=== PATIENT | female | born 1950 | race Caucasian/White ===

== ENCOUNTER 2016-10-07 10:29 | Inpatient (IN) ==
[2016-10-07] MEDS: *HR* OxyCODONE Immed Rel 5 MG TABLET PO PRN ×2 (15:34→21:30)
--- NOTE | 2016-10-07 16:57 | Internal Med History&Physical ---
Date of Encounter: 10/07/16 Time of Encounter: 16:30 Assessment and Plan (1) Arthritis of right hip Current visit: No Status: Acute Status post right THR 10/04/2016. She will have physical therapy and occupational therapy evaluations with ongoing intervention. (2) Acute renal failure Current visit: Yes Status: Acute Creatinine was 1.13 with estimated GFR 48 on 10/06/2016. We will continue to withhold meloxicam and monitor renal indices. Qualifiers: Acute renal failure type: unspecified Qualified Code(s): N17.9 - Acute kidney failure, unspecified (3) HTN (hypertension) Current visit: No Status: Chronic Will monitor blood pressure. Qualifiers: Hypertension type: essential hypertension Qualified Code(s): I10 - Essential (primary) hypertension (4) Acute blood loss anemia Current visit: No Status: Acute Will hold aspirin and meloxicam and give Lovenox for DVT prophylaxis. Internal Medicine - H&P: HPI Chief complaint: Right THR Admitted From: Hospital to Hospital Transfer Plans for Post Hospital Care: Home History of present illness: Ms. Calle is a 65 year old female who underwent elective right THR at [facility] by October 04. Her postop course was unremarkable and she was admitted to [facility] swing bed today for rehabilitation therapy prior to returning home for independent living. She denies previous orthopedic surgeries. She denies gout or other bone joint or muscle disease. Past Med Surg Social Fam HX - Past Medical History Medical history: arthritis, hypertension, other Psychiatric history: no psych history - Past Surgical History Surgical History: hysterectomy - Social History Smoking Status: Never smoker Smokeless Tobacco Status: No Alcohol use: none Drug use: none - Family History Father Living Status: Hx Family Cancer: Yes (lung) Mother Living Status: Hx Family Cardiac Disorders: Yes Internal Medicine - H&P: Meds Meloxicam 15 mg PO DAILY 03/03/16 [History] Aspirin Enteric Coated [Aspirin EC] 325 mg PO DAILY #21 tablet. 10/03/16 [Rx] OxyCODONE Immed Rel [Roxicodone 5 MG] 5 - 10 mg PO Q6HR PRN #40 tablet 10/03/16 [Rx] Bisacodyl [Dulcolax] 5 mg PO DAILY PRN 10/04/16 [History] Allergies No Known Allergies Allergy (Verified 06/19/15 06:58) All Systems PM: A 10-system review of systems was performed and is negative for pertinent findings except as documented above in the HPI. Review of systems: Gen.: She states her weight has decreased approximately 20 pounds in the past year, intentionally Cardiovascular: She denies hypertension heart failure angina DVT or pulmonary embolus Respiratory: She is a lifelong nonsmoker and has no known chronic lung disease GI: She denies disorders of her liver gallbladder or exocrine pancreas : She denies hematuria dysuria or kidney stones Neurologic: She denies large distribution strokes or seizures. Endocrine: She denies diabetes thyroid disease or hyperlipidemia Hematology/oncology: She had anemia documented on recent CBCs. She denies blood disorders or internal malignancies Psychiatric: She denies anxiety depression or other mental health issues Musculoskeletal: As per history of present illness - Other Additional findings: Gen.: She is a well-developed well-nourished female sitting in a chair who appears in no acute distress at present time HEENT: Head is atraumatic and normocephalic. Eyes: EOMI. There is no scleral icterus. Mouth: Mucosa is moist. Neck: Supple and nontender. There is no thyromegaly or adenopathy noted. Heart: Regular without murmurs gallops or ectopics. Lungs: No wheezes or crackles are heard. Abdomen: Soft and nontender. Exam is limited because she is in the seated position. Extremities: There is no cyanosis or clubbing noted. She has trace edema of the anterior tibia bilaterally. She has minimal DJD changes of her hands. Neurologic: Mental status: She is talkative and a good historian. Cranial nerves: Smile is symmetric. Forehead wrinkles bilaterally. Tongue protrudes midline. EOMI. Motor: There is no pronator drift. Cerebellar: Finger to nose is intact bilaterally. Skin: Warm and dry - VTE Documentation of Mechanical Device: Venous foot pump, device
[2016-10-07] MEDS: MOM Conc 10 ML UD.LIQ PO SCH (21:30)
[2016-10-08] MEDS: *HR* OxyCODONE Immed Rel 5 MG TABLET PO PRN ×4 (03:35→22:29)
[2016-10-08] MEDS: *HR* Enoxaparin 40 MG/0.4 ML SYRINGE SQ SCH (06:03)
[2016-10-08] MEDS: Ondansetron ODT 4 MG TAB.RAPDIS SL PRN (06:03)
[2016-10-08] MEDS ORDERED: Aspirin Enteric Coated 325 MG Tablet PO SCH (09:00)
--- NOTE | 2016-10-08 15:37 | Internal Med Progress Note ---
Date of Encounter: 10/08/16 Time of Encounter: 15:30 - Assessment and plan (1) Arthritis of right hip Current Visit: No Status: Acute Assessment and plan: October 08. Status post right THR 10/04/2016. Continue PT and OT intervention. Continue Lovenox for DVT prophylaxis (2) Acute renal failure Current Visit: Yes Status: Acute Assessment and plan: October 08. Continue to withhold aspirin and meloxicam. We will recheck renal indices in 2-3 days. Qualifiers: Acute renal failure type: unspecified Qualified Code(s): N17.9 - Acute kidney failure, unspecified (3) HTN (hypertension) Current Visit: No Status: Chronic Assessment and plan: October 08. Continue to monitor blood pressure. Qualifiers: Hypertension type: essential hypertension Qualified Code(s): I10 - Essential (primary) hypertension (4) Acute blood loss anemia Current Visit: No Status: Acute Assessment and plan: October 08. We will monitor CBC - Subjective Interval history: October 08. She has no new complaints. - Constitutional Vitals: Temp Pulse Resp BP Pulse Ox 99 F 84 18 100/67 97 10/08/16 07:42 10/08/16 12:54 10/08/16 12:54 10/08/16 12:54 10/08/16 12:54 Exam: She is resting comfortably in bed. Her affect is bright and cheerful. She has an abduction pillow in place. I reviewed her medications. - VTE Documentation of Mechanical Device: Venous foot pump, device Consult Discharge Plan - Plan Referrals: NO,PCP [Primary Care Provider] - 1 week
[2016-10-09] MEDS: *HR* OxyCODONE Immed Rel 5 MG TABLET PO PRN ×5 (01:01→17:26)
[2016-10-09] MEDS ORDERED: *HR* OxyCODONE Immed Rel 5 MG TABLET PO SCH ×2 (04:00)
[2016-10-09] MEDS: *HR* Enoxaparin 40 MG/0.4 ML SYRINGE SQ SCH (08:15)
[2016-10-09] MEDS: MOM Conc 10 ML UD.LIQ PO SCH (17:20)
[2016-10-09] MEDS ORDERED: *HR* OxyCODONE Immed Rel 5 MG TABLET PO ONE (20:18)
[2016-10-10] MEDS: *HR* OxyCODONE Immed Rel 5 MG TABLET PO PRN ×5 (00:22→19:46)
[2016-10-10] MEDS: *HR* Enoxaparin 40 MG/0.4 ML SYRINGE SQ SCH (05:54)
--- NOTE | 2016-10-10 12:27 | Internal Med Progress Note ---
Date of Encounter: 10/10/16 Time of Encounter: 12:20 - Assessment and plan (1) Arthritis of right hip Current Visit: No Status: Acute Assessment and plan: October 08. Status post right THR 10/04/2016. Continue PT and OT intervention. Continue Lovenox for DVT prophylaxis (2) Acute renal failure Current Visit: Yes Status: Acute Assessment and plan: October 08. Continue to withhold aspirin and meloxicam. We will recheck renal indices in 2-3 days. October 2. We will check labs in a.m. Qualifiers: Acute renal failure type: unspecified Qualified Code(s): N17.9 - Acute kidney failure, unspecified (3) HTN (hypertension) Current Visit: No Status: Chronic Assessment and plan: October 08. Continue to monitor blood pressure. Qualifiers: Hypertension type: essential hypertension Qualified Code(s): I10 - Essential (primary) hypertension (4) Acute blood loss anemia Current Visit: No Status: Acute Assessment and plan: October 08. We will monitor CBC October 10. We will check labs in a.m. - Subjective Interval history: October 08. She has no new complaints. October 10. She had worsening pain yesterday of her right leg. There was no injury associated. A CT was ordered and showed no acute significant pathology - Constitutional Vitals: Temp Pulse Resp BP Pulse Ox 98.5 F 89 17 113/52 95 10/10/16 08:35 10/10/16 08:35 10/10/16 08:35 10/10/16 08:35 10/10/16 10:21 Exam: She is lying in bed and appears comfortable at present. Her right leg and foot show no discoloration or significant edema present. Her affect is bright and cheerful. I reviewed her CT report and her medications and vital signs. Internal Medicine: Result - Impressions Impressions Lower Extremity CT 10/09/16 17:56 IMPRESSION: 1. Status post right total hip arthroplasty with no evidence for immediate postoperative complication. 2. Scattered locules of subcutaneous gas are identified within the soft tissues of the anterior right thigh, likely postsurgical. 3. Moderate subcutaneous edema is noted within the subcutaneous tissues from the mid thigh and extending distally along the subcutaneous tissues of the right lower extremity to the level of the foot. Findings are nonspecific. No organized drainable fluid collection is identified. D/ / Ollie Stover MD / Ollie Stover MD Interpreting Provider: Ollie Stover MD - VTE Documentation of Mechanical Device: Venous foot pump, device Consult Discharge Plan - Plan Referrals: NO,PCP [Primary Care Provider] - 1 week
[2016-10-11] MEDS: *HR* OxyCODONE Immed Rel 5 MG TABLET PO PRN ×7 (00:05→21:58)
[2016-10-11] MEDS: *HR* Enoxaparin 40 MG/0.4 ML SYRINGE SQ SCH (06:04)
[2016-10-11 06:26] LABS: Basophils % 0.6 %; Eosinophils # 0.2 K/mcL (0.0-0.6); Eosinophils % 4.8 %; Hematocrit 24.5 % (35.3-44.9); Immature Granulocytes % 0.4 % (0-4); Lymphocytes # 1.1 K/mcL (0.6-4.6); Lymphocytes % 23.7 %; Mean Corpuscular HGB Conc 32.7 g/dL (31.6-35.5); Mean Corpuscular Hemoglobin 28.7 pg (28.0-33.3); Mean Corpuscular Volume 87.8 fL (83.0-100.0); Mean Platelet Volume 10.3 fL (9.4-12.4); Monocytes # 0.5 K/mcL (0.0-1.3); Monocytes % 9.4 %; Neutrophils # 2.9 K/mcL (1.6-8.9); Platelet Count 284 K/mcL (140-400); Red Blood Count 2.79 M/mcL (3.82-4.97); Red Cell Distribution Width 13.2 % (11.5-14.5); Segmented Neutrophils % 61.1 %
[2016-10-11 06:42] LABS: BUN/Creatinine Ratio 14 (6-26); Blood Urea Nitrogen 12 mg/dL (7-20); Calcium 8.4 mg/dL (8.6-10.8); Carbon Dioxide 26 mEq/L (19-29); Chloride 102 mEq/L (98-109); Glucose 103 mg/dL (70-99); Osmolality,Calculated 284 (280-300); Potassium 4.2 mEq/L (3.5-4.5); Sodium 137 mEq/L (136-145); eGFR For African Americans > 60 (> 60); eGFR For Non-African Americans > 60 (> 60)
[2016-10-11] MEDS: Ondansetron ODT 4 MG TAB.RAPDIS SL PRN (09:28)
[2016-10-11] MEDS: MOM Conc 10 ML UD.LIQ PO SCH (16:33)
[2016-10-12] MEDS: *HR* OxyCODONE Immed Rel 5 MG TABLET PO PRN ×6 (02:03→22:34)
[2016-10-12] MEDS: *HR* Enoxaparin 40 MG/0.4 ML SYRINGE SQ SCH (06:11)
[2016-10-13] MEDS: *HR* OxyCODONE Immed Rel 5 MG TABLET PO PRN ×5 (04:27→22:24)
[2016-10-13] MEDS: *HR* Enoxaparin 40 MG/0.4 ML SYRINGE SQ SCH (04:27)
--- NOTE | 2016-10-13 16:41 | Internal Med Progress Note ---
Date of Encounter: 10/13/16 Time of Encounter: 16:30 - Assessment and plan (1) Arthritis of right hip Current Visit: No Status: Acute Assessment and plan: October 08. Status post right THR 10/04/2016. Continue PT and OT intervention. Continue Lovenox for DVT prophylaxis (2) Acute renal failure Current Visit: Yes Status: Acute Assessment and plan: October 08. Continue to withhold aspirin and meloxicam. We will recheck renal indices in 2-3 days. October 10. We will check labs in a.m. October 13. Creatinine has normalized to 0.83. Remain off aspirin and meloxicam. Qualifiers: Acute renal failure type: unspecified Qualified Code(s): N17.9 - Acute kidney failure, unspecified (3) HTN (hypertension) Current Visit: No Status: Chronic Assessment and plan: October 08. Continue to monitor blood pressure. October 13. Blood pressure remains overall satisfactory without medication. Qualifiers: Hypertension type: essential hypertension Qualified Code(s): I10 - Essential (primary) hypertension (4) Acute blood loss anemia Current Visit: No Status: Acute Assessment and plan: October 08. We will monitor CBC October 10. We will check labs in a.m. October 13. We will recheck labs in a.m. - Subjective Interval history: October 08. She has no new complaints. October 10. She had worsening pain yesterday of her right leg. There was no injury associated. A CT was ordered and showed no acute significant pathology October 13. She has no new complaints. Her pain has lessened but is still present. - Constitutional Vitals: Temp Pulse Resp BP Pulse Ox 97.5 F L 89 20 150/71 97 10/13/16 13:06 10/13/16 13:06 10/13/16 13:06 10/13/16 13:06 10/13/16 13:06 Exam: She is resting comfortably in bed. The right leg shows 1+ edema of the dorsum of the foot with trace edema at most on the left foot. I reviewed her medications and lab results. Internal Medicine: Result - Labs CBC & Chem 7: 10/11/16 05:15 10/11/16 05:15 - VTE Documentation of Mechanical Device: Venous foot pump, device Consult Discharge Plan - Plan Referrals: NO,PCP [Primary Care Provider] - 1 week
[2016-10-13] MEDS: MOM Conc 10 ML UD.LIQ PO SCH (18:27)
[2016-10-14] MEDS: *HR* OxyCODONE Immed Rel 5 MG TABLET PO PRN ×5 (04:48→23:02)
[2016-10-14] MEDS: *HR* Enoxaparin 40 MG/0.4 ML SYRINGE SQ SCH (07:33)
[2016-10-15] MEDS: *HR* OxyCODONE Immed Rel 5 MG TABLET PO PRN ×2 (05:48→10:14)
[2016-10-15] MEDS: *HR* Enoxaparin 40 MG/0.4 ML SYRINGE SQ SCH (05:49)
[2016-10-15 07:56] VITALS: BP 109/68
[2016-10-15] MEDS ORDERED: MethylPREDNISolone 4 MG TABLET PO SCH (09:00)
--- NOTE | 2016-10-15 10:25 | Discharge Summary ---
Date of Encounter: 10/15/16 Time of Encounter: 10:15 - Discharge Diagnosis (1) Arthritis of right hip Priority: Primary Status: Acute (2) Acute renal failure Priority: Secondary Status: Acute Qualifiers: Acute renal failure type: unspecified Qualified Code(s): N17.9 - Acute kidney failure, unspecified (3) HTN (hypertension) Priority: Secondary Status: Chronic Qualifiers: Hypertension type: essential hypertension Qualified Code(s): I10 - Essential (primary) hypertension (4) Acute blood loss anemia Priority: Secondary Status: Acute - Discharge Medications Home Medications: Bisacodyl [Dulcolax] 5 mg PO DAILY PRN 10/04/16 [History] Allergies/Adverse Reactions: Allergies No Known Allergies Allergy (Verified 06/19/15 06:58) Date of admission: 10/07/16 10:59 Primary care physician: Jessica Cordon CNP Consults: 10/07/16 12:15 Consult to Occupational Therapy [CONS] Routine Comment: evaluate, develop, and implement plan of care Consult to Physical Therapy [CONS] Routine Comment: evaluate,develop, and implement plan of care Consult to Engineering Operator [CONS] Routine Reason for SW Consult: discharge planning - Patient Status Disposition: Home, Self-Care Functional capacity at discharge: uses cane/walker Overall status at discharge: patient is progressing back to baseline - Discharge Instructions Follow Up With: Jessica Cordon CNP [Advanced Practice Nurse] - 1 week - Diet and Activity Activity: as per physical therapy Diet: advance to your usual diet Hospital course: Ms. Calle is a 65 year old female who underwent elective right THR at [facility] by October 04. Her postop course was unremarkable and she was admitted to [facility] swing bed today for rehabilitation therapy prior to returning home for independent living. Initial orders were written by the discharging physicians at [facility]. I saw her on October 07 and performed the history and physical. She had physical therapy and occupational therapy evaluations with ongoing interventions. She progressed satisfactorily. Her pain was well-controlled by the time of discharge. Meloxicam was held and renal function improved with creatinine decreasing to 0.83 and estimated GFR greater than 60 on 10/11/2016 labs. Hemoglobin was 8.0 on October 11. I will let her PCP Jessica Cordon CNP follow-up on this. On October 15 she was stable for discharge home. She will follow with her PCP within one week and her orthopedic physician as directed. - Time Spent with Patient Total time spent providing and/or coordinating discharge services: - Constitutional Vitals: Temp Pulse Resp BP Pulse Ox 98.1 F 79 18 109/68 95 10/15/16 07:55 10/15/16 07:55 10/15/16 07:55 10/15/16 07:55 10/15/16 07:55 - VTE Documentation of Mechanical Device: Venous foot pump, device
== END 2016-10-15 12:58 | disposition home or self-care (01) | DRG 560 ==
LOC: INPPIK 10:59
PROVIDERS: ADMIT Internal Medicine; ATTEND Internal Medicine